=== PATIENT | female | born 1970 | race Caucasian/White ===

== ENCOUNTER 2017-11-21 09:45 | Emergency (ER) | payer OTHER ==
[2017-11-21 09:52] VITALS: BP 179/107
[2017-11-21] MEDS ORDERED: ALBUTEROL SULFATE HFA (90 MCG/PUFF) 8 GM MDI (1 MDI/ER DISP) IH ONE (10:07)
[2017-11-21] MEDS ORDERED: HYDROCODONE/ACETAMINOPHEN 5-325 MG (6 TAB/ER DISP) PO PRN (10:07)
--- NOTE | 2017-11-21 10:10 | ER Document Report ---
ED Flu Like - General Chief Complaint: Flu Symptoms Stated Complaint: FLU LIKE SYMPTOMS Time Seen by Provider: 11/21/17 09:52 Mode of Arrival: Ambulatory Information source: Patient, [facility] Records Notes: This 47-year-old female patient comes emergency room complaining of upper respiratory tract infection symptoms. She has had a cough, sores in her nose and flulike symptoms. 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 She is also complaining of problems and pains in her abdomen since she had surgery at [facility] on 09/16/2017 for got surgeries due to "lots of tumors". She states her doctor does not believe in pain medication. She was placed on amoxicillin about 2 weeks ago and probable steroid nasal spray for sinus issues but they did not get better. She does not have an albuterol inhaler or nebulizer for the wheezing that she is experiencing. She has previously been diagnosed as COPD and continues to smoke. She is adamantly opposed to taking prednisone because it "killed my sister" who suffered from severe lupus. TRAVEL OUTSIDE OF THE [place] IN LAST 30 DAYS: No - Related Data Allergies/Adverse Reactions: No Known Allergies Allergy (Verified 11/21/17 09:46) Home Medications: Current Home Medications Atorvastatin Calcium 10 mg PO 11/21/17 [History] B12/FA/D3/Calc Cit/Zn Aa Chelt [Rx Balance Int Capsule] 1 cap PO DAILY 11/21/17 [History] Coconut Oil 1 cap PO DAILY 11/21/17 [History] Diltiazem HCl [Cartia Xt] 1 cap PO DAILY 11/21/17 [History] Spironolactone 12.5 mg PO 11/21/17 [History] Telmisartan/Hydrochlorothiazid [Telmisartan-Hctz 80-25 mg Tab] 1 each PO [History] Past Medical History - General Information source: Patient, [facility] Records - Social History Smoking Status: Current Every Day Smoker Cigarette use (# per day): Yes - 1PPD, tapring since 11/15/2017 Chew tobacco use (# tins/day): No Smoking Education Provided: No Frequency of alcohol use: None Drug Abuse: None Occupation: Unemployed Lives with: Family Family History: Reviewed & Not Pertinent Patient has suicidal ideation: No Patient has homicidal ideation: No - Past Medical History Cardiac Medical History: Reports: Hx Hypertension Pulmonary Medical History: Reports: Hx COPD EENT Medical History: Reports: None Neurological Medical History: Reports: None Endocrine Medical History: Reports: None Renal/ Medical History: Reports: None Malignancy Medical History: Reports: Other - Reportedly has a left adrenal gland tumor GI Medical History: Reports: None Musculoskeltal Medical History: Reports None Skin Medical History: Reports None Psychiatric Medical History: Reports: None Past Surgical History: Reports: Hx Abdominal Surgery - September 16, 2017 had " gut surgery" for "lots of tumors", Hx Appendectomy, Hx Section, Hx Gynecologic Surgery - uterus and ovary removed - Immunizations Hx Diphtheria, Pertussis, Tetanus Vaccination: Yes Review of Systems - Review of Systems Constitutional: No symptoms reported EENT: Nose pain - Sores in the nose, Sinus pressure, Other - Right face pain and twitching Cardiovascular: No symptoms reported Respiratory: Cough, Wheezing. denies: Sputum Gastrointestinal: See HPI, Abdominal pain Genitourinary: No symptoms reported Female Genitourinary: Post menopausal Musculoskeletal: No symptoms reported Skin: No symptoms reported Hematologic/Lymphatic: No symptoms reported Neurological/Psychological: No symptoms reported Physical Exam - Vital signs Vitals: Temp Pulse Resp BP Pulse Ox 98.2 F 82 16 179/107 H 99 11/21/17 09:50 11/21/17 09:50 11/21/17 09:50 11/21/17 09:50 11/21/17 09:50 Interpretation: Hypertensive - Patient has medications to take for her blood pressure - General General appearance: Appears well, Alert In distress: None - HEENT Head: Normocephalic, Atraumatic Eyes: Normal Pupils: PERRL Nasal: Clear rhinorrhea, Other - Some inflammation to the nasal mucosa Pharynx: Normal Neck: Normal - Respiratory Respiratory status: No respiratory distress Breath sounds: Nonproductive cough, Rhonchi - Some rhonchi heard with forced cough, Wheezing - Some faint expiratory wheezes heard with forced cough - Cardiovascular Rhythm: Regular Heart sounds: Normal auscultation Murmur: No - Abdominal Inspection: Normal Bowel sounds: Normal Tenderness: Tender - Back Back: Tender - Tender to palpate the right scapular back muscle area. Made worse with turning trunk twisting and taking a deep breath and coughing. - Extremities General upper extremity: Normal inspection General lower extremity: Normal inspection - Neurological Neuro grossly intact: Yes - Psychological Associated symptoms: Normal affect, Normal mood - Skin Skin Temperature: Warm Skin Moisture: Dry Skin Color: Normal Course - Vital Signs Vital signs: Temp Pulse Resp BP Pulse Ox 98.2 F 82 16 179/107 H 99 11/21/17 09:50 11/21/17 09:50 11/21/17 09:50 11/21/17 09:50 11/21/17 09:50 Discharge - Discharge Clinical Impression: Viral upper respiratory tract infection with cough, Strain of muscle at thorax level, Chronic abdominal pain Condition: Stable Disposition: HOME, SELF-CARE Additional Instructions: Upper Respiratory Illness: You have a viral infection of the respiratory passages -- a "cold." This common infection causes nasal congestion, drainage, and often sore throat and cough. It is caused by a virus and is highly contagious. The disease usually lasts a week or more, though the worst symptoms are usually over in 3 or 4 days. There is no "cure" for the viral infection -- it must run its course. If there is a complication, such as bacterial infection in the nose, sinuses, middle ear, or bronchial tubes, antibiotics may be required, but antibiotics won 't affect the virus. If you smoke, you should STOP!! Drink plenty of fluids. A humidifier may help. An expectorant medication or decongestant may make you more comfortable. Use acetaminophen or ibuprofen for fever or aches. See the doctor if fever persists over two or three days, if there is any significant worsening of your symptoms, or if you simply fail to improve as expected. //////////////////////////////////////////////////////////////////////////////// //////////////////////////////////////////////////////////////////////////////// /////////////////// You have a viral upper respiratory tract infection causing you to cough and wheeze some. I think the coughing you are doing is straining some muscles in your back chest and abdomen making the pain you are always experiencing even worse. You should use the albuterol inhaler, 2 puffs every 4 hours for wheezing as needed. It will help your breathing and help until your cough. Take the medication as prescribed for pain or to help suppress your cough. Additionally, taking Robitussin-DM may help control your cough. Follow-up with your doctor this week to discuss further options for controlling the pain you seem to be having from your previous abdominal surgeries and your adrenal gland tumor. RETURN TO THE EMERGENCY ROOM IF ANY NEW OR WORSENING SYMPTOMS. Prescriptions: Hydrocodone/Acetaminophen [[place] 5-325 mg Tablet] 1 tab PO ASDIR PRN #15 tablet PRN Reason:
== END 2017-11-21 10:17 | disposition home or self-care (01) ==
LOC: ER 09:45
DX: J06.9 Acute upper respiratory infection, unspecified (principal); S29.011A Strain of muscle and tendon of front wall of thorax, initial encounter; X58.XXXA Exposure to other specified factors, initial encounter; J44.9 Chronic obstructive pulmonary disease, unspecified; F17.210 Nicotine dependence, cigarettes, uncomplicated; G89.29 Other chronic pain; R10.9 Unspecified abdominal pain
CPT/HCPCS: 99283; J3490